=== PATIENT | female | born 1975 | race Caucasian/White ===

== ENCOUNTER 2017-04-02 18:32 | Emergency (ER) | payer MEDICAID, OTHER ==
[2017-04-02 18:32] VITALS: O2SAT 100
[2017-04-02 18:50] VITALS: BP 127/74; PULSE 60; RESP 18; TEMP 98.1
[2017-04-02] MEDS ORDERED: AZITHROMYCIN 250 MG TAB PO ONE (19:09)
[2017-04-02] MEDS ORDERED: AZITHROMYCIN 250 MG TAB ONE (19:16)
== END 2017-04-02 19:28 | disposition home or self-care (01) ==
LOC: ED 18:32
DX: H66.90 Otitis media, unspecified, unspecified ear (principal); J03.90 Acute tonsillitis, unspecified
CPT/HCPCS: 99282

== ENCOUNTER 2018-07-18 18:22 | Emergency (ER) | payer BC, MEDICAID ==
[2018-07-18 18:51] VITALS: RESP 20; TEMP 96.8; O2SAT 100
[2018-07-18 19:26] VITALS: BP 126/84; PULSE 74
== END 2018-07-18 19:03 | disposition home or self-care (01) ==
LOC: ED 18:22
DX: J40 Bronchitis, not specified as acute or chronic (principal)
CPT/HCPCS: 99282

== ENCOUNTER 2018-11-12 14:17 | Emergency (ER) | payer BC, OTHER ==
[2018-11-12 14:18] VITALS: O2SAT 100
[2018-11-12] MEDS ORDERED: SODIUM CHLORIDE 0.9% 1000ML 1,000 ML IV ONE (15:01)
[2018-11-12 15:08] VITALS: RESP 18
[2018-11-12 15:41] LABS: HEMATOCRIT 42 % (35-47); HEMOGLOBIN 13.9 gm/dl (12.0-15.5); MEAN CORPUSCULAR HGB CONC 33.3 gm/dl (32.0-36.0); MEAN CORPUSCULAR VOLUME 84 fL (81-99)
[2018-11-12 15:54] LABS: APPEARANCE,URINE Slightly Cloudy; BILIRUBIN,URINE NEGATIVE (NEGATIVE); COLOR,URINE Yellow; GLUCOSE, URINE (UA) NEGATIVE (NEGATIVE); KETONES,URINE NEGATIVE (NEGATIVE); LEUKOCYTE ESTERASE ,URINE TRACE (NEGATIVE); NITRATE,URINE NEGATIVE (NEGATIVE); OCCULT BLOOD,URINE NEGATIVE (NEG-TRACE); UROBILINOGEN,URINE 0.2 (0.2-1.0 EU)
[2018-11-12 15:55] LABS: ALBUMIN 3.8 gm/dl (3.4-5.0); BILIRUBIN,TOTAL 0.6 mg/dl (0.2-1.0); CALCIUM 8.1 mg/dl (8.5-10.1); CARBON DIOXIDE 24.5 mEq/L (21-32); CREATININE 0.82 mg/dl (0.60-1.00); POTASSIUM 4.7 mMol/L (3.5-5.1); THYROID STIMULATING HORMONE 0.045 uIU/ml (0.358-3.740); TOTAL PROTEIN 6.8 gm/dl (6.4-8.2)
[2018-11-12 16:10] LABS: BACTERIA 1+ (< 1+); CRYSTALS NEGATIVE (0-3 AVE/HPF); RBC,URINE NEG (0-3AV/HPF)
[2018-11-12 16:28] LABS: BAND NEUTROPHILS % (MANUAL) 2 %; EOSINOPHILS % (MANUAL) 2 % (0-9); LYMPHOCYTES % (MANUAL) 30 % (10-50); MONOCYTES % (MANUAL) 9 % (0-12); NEUTROPHILS % (MANUAL) 56 % (37-80)
[2018-11-12 16:29] LABS: BASOPHILS % (MANUAL) 1 % (0-3)
[2018-11-12 17:51] VITALS: BP 114/61; PULSE 56
== END 2018-11-12 17:44 | disposition home or self-care (01) | DRG 690 ==
LOC: ED 14:17
DX: N39.0 Urinary tract infection, site not specified (principal); E86.0 Dehydration; R42 Dizziness and giddiness; E07.9 Disorder of thyroid, unspecified
CPT/HCPCS: 80053; 81001; 84443; 84703; 85007; 85027; 87088; 87205; 96365; 99283; 99284

== ENCOUNTER 2018-12-04 18:48 | Emergency (ER) | payer OTHER ==
[2018-12-04] MEDS ORDERED: SODIUM CHLORIDE 0.9% 1000ML 1,000 ML IV ONE (19:03)
[2018-12-04 19:06] LABS: BASOPHILS % (AUTO) 1 % (0-3); EOSINOPHILS % (AUTO) 2 % (0-9); HEMATOCRIT 42 % (35-47); LYMPHOCYTES % (AUTO) 21.9 % (10-50); MEAN CORPUSCULAR HEMOGLOBIN 27.8 pg (27.0-32.0); MEAN CORPUSCULAR HGB CONC 33.3 gm/dl (32.0-36.0); MEAN CORPUSCULAR VOLUME 83 fL (81-99); MONOCYTES % (AUTO) 9.9 % (0-12); NEUTROPHILS % (AUTO) 65.8 % (37-80)
[2018-12-04 19:07] VITALS: TEMP 97.8
[2018-12-04 19:34] LABS: ALBUMIN 3.9 gm/dl (3.4-5.0); BILIRUBIN,TOTAL 0.6 mg/dl (0.2-1.0); CALCIUM 8.7 mg/dl (8.5-10.1); CARBON DIOXIDE 25.7 mEq/L (21-32); CREATININE 0.89 mg/dl (0.60-1.00); POTASSIUM 3.9 mMol/L (3.5-5.1)
[2018-12-04 19:40] VITALS: RESP 20
[2018-12-04 22:12] VITALS: BP 113/75; PULSE 66; O2SAT 99
== END 2018-12-04 20:19 | disposition home or self-care (01) | DRG 641 ==
LOC: ED 18:48
DX: E86.0 Dehydration (principal); K59.00 Constipation, unspecified; R42 Dizziness and giddiness; E03.9 Hypothyroidism, unspecified; R40.2362 Coma scale, best motor response, obeys commands, at arrival to emergency department; R40.2142 Coma scale, eyes open, spontaneous, at arrival to emergency department; R40.2252 Coma scale, best verbal response, oriented, at arrival to emergency department
CPT/HCPCS: 80053; 85025; 96365; 99283; 99284